=== PATIENT | female | born 1945 | race Caucasian/White ===

== ENCOUNTER 2017-06-21 17:02 | Outpatient (CLI) | payer MEDICARE, BC ==
[2017-06-21 18:16] LABS: Hematocrit 38.9 % (36.0-47.0); Mean Platelet Volume 10.1 fL (7.4-10.4); Red Blood Cell (RBC) Count 4.01 mill/uL (4.20-5.40); White Blood Cell (WBC) Count 15.8 thou/uL (4.8-10.8)
[2017-06-21 18:21] LABS: PTT 34.8 SEC (22.9-36.1); Prothrombin Time 13.2 SEC (12.0-14.7)
[2017-06-21 18:45] LABS: Anion Gap 12 mmol/L (10-20); BUN (Urea Nitrogen) 16 mg/dL (9.8-20.1); Calc. Creatinine Clearance 0 mL/min (70-130); Calcium 9.9 mg/dL (7.8-10.44); Carbon Dioxide 30 mmol/L (23-31); Chloride 103 mmol/L (98-107); Estimated GFR-MDRD 77
== END 2017-06-21 17:03 | disposition home or self-care (01) ==
LOC: LABBT 17:02
PROVIDERS: ATTEND Urology
DX: Z01.818 Encounter for other preprocedural examination (principal); N13.2 Hydronephrosis with renal and ureteral calculous obstruction
CPT/HCPCS: 80048; 85027; 85610; 85730

== ENCOUNTER 2017-06-27 06:53 | Day surgery (SDC) | payer MEDICARE, BC ==
[2017-06-21 17:15] VITALS: BMI 39.0
[2017-06-27] MEDS ORDERED: Iothalamate Meglumine 60% 50 ML VIAL FS ONE (07:19)
[2017-06-27] MEDS ORDERED: cefTRIAXone\\ROCEPHIN 2 GM in Sodium Chloride 0.9% 100 ML IVPB SCH (07:30)
[2017-06-27] MEDS ORDERED: Levofloxacin 500 mg/D5W 100 ml Premix Bag ONE (08:01)
[2017-06-27 08:05] LABS: #Basophils 0.1 thou/uL (0.0-0.2); #Eosinphils 0.7 thou/uL (0.0-0.7); #Monocytes 0.9 thou/uL (0.11-0.59); #Neutrophils 6.6 thou/uL (1.40-6.50); %Eosinophils 5.7 % (0.0-10.0); %Lymphocytes 32.6 % (21.0-51.0); %Monocytes 7.3 % (0.0-10.0); Hematocrit 38.5 % (36.0-47.0); Mean Platelet Volume 10.1 fL (7.4-10.4); Red Blood Cell (RBC) Count 4.02 mill/uL (4.20-5.40); White Blood Cell (WBC) Count 12.3 thou/uL (4.8-10.8)
--- NOTE | 2017-06-27 09:07 | RAD ---
SINGLE VIEW OF THE ABDOMEN: Comparison: None. History: Right renal stone. Pre-operative radiograph. FINDINGS: Single view of the abdomen shows a nonspecific, nonobstructive bowel gas pattern. There is a right do uble J ureteral stent in good position. There is a radiopacity projecting along the proximal aspect o f the stent which likely represents a proximal ureteral calcification measuring approximately 6 mm in size. IMPRESSION: Right ureteral stent with likely adjacent small ureteral calcification. POS: MAGDALENO
[2017-06-27] MEDS ORDERED: Midazolam HCl 2 mg/2 ml Vial ONE (09:11)
[2017-06-27] MEDS ORDERED: Fentanyl 250 MCG/5 ML VIAL ONE (09:11)
[2017-06-27] MEDS ORDERED: Phenazopyridine HCl 97.5 MG TABLET ONE ×2 (11:09→11:10)
--- NOTE | 2017-06-27 11:30 | RAD ---
RETROGRADE IVP: Date: 06/27/17 COMPARISON: 06/27/17. HISTORY: Right renal stone. FINDINGS/IMPRESSION: Multiple limited intraoperative fluoroscopic views from a retrograde IVP were submitted for interpret ation. There is a wire in the right renal collecting system. There is a radiopacity along the cranial aspect of the stent which may represent a calcification in the right ureter. There is mild right-marybeth ed hydronephrosis. POS: ALEXSANDRA
--- NOTE | 2017-06-27 12:18 | OP ---
DATE OF PROCEDURE: 06/27/2017 PREOPERATIVE DIAGNOSIS: A 71-year-old female with history of right proximal ureteral stone, 6-7mm. POSTOPERATIVE DIAGNOSIS: A 71-year-old female with history of right proximal ureteral stone, 6-7 mm. PROCEDURES: Cystoscopy, right retrograde, 6 x 26 double-J ureteral stent exchange with dangler, ureteroscopy, pyeloscopy, laser lithotripsy, basket extraction of stone fragments SURGEON: Neha Santamaria D.O. ANESTHESIA: General. COMPLICATIONS: None apparent. DISPOSITION: To the recovery room in stable condition. SPECIMEN: Ureteral stone fragments for chemical analysis. INDICATIONS FOR THE PROCEDURE AND HISTORY: Ms. Nieves is a 71-year-old female with history of morbid obesity who presented to [facility] due to intractable right flank pain. She underwent ureteral stent placement with resolution of discomfort. She initially presented with history of fever with white count of 18,000, final culture is negative and she has been on Levaquin. Repeat urine culture obtained in my office is negative and she desires to proceed with ureteroscopy and laser lithotripsy. I discussed with patient regarding alternative options including ESWL, however, due to stone to skin distance and her morbid obesity, decreased stone free rate with ESWL discussed with patient in detail and she desired to proceed with more definitive surgery. Risks and complications of ureteroscopy reviewed including, but not limited to , bleeding, pain, infection, injury to adjacent organs, urosepsis, ureteral / renal injury, possible secondary procedure was reviewed with her in detail. All questions answered to her satisfaction, she desires to proceed without reservation. DESCRIPTION OF THE PROCEDURE: After an informed consent is signed, the patient is taken to the operating room, placed in a dorsal lithotomy position with the genital area prepped and draped in the usual surgical sterile fashion. A 21- Lao cystoscope was utilized for cystoscopy. Preexisting ureteral stent was removed to the level of the meatus. Preop KUB demonstrated the stone in the proximal ureter adjacent to the stent. The stent was removed to the level of the meatus and a 0.35 sensor wire was fed through the stent to the level of the right upper pole. The stent was then completely removed. Using a dual-lumen access sheath, this was passed over the working wire and a retrograde pyelogram confirmed proper placement of the wire. A second working wire, a 0.35 super stiff was then placed. A dual-lumen access sheath was then subsequently removed and an 11/13 Lao x 36 cm navigator was placed to the level of the stone. A flexible ureteroscope was then passed under guidewire assist to level of the stone. The stone was directly visualized. The level of the ureter where the stone was obstructing demonstrated inflammatory changes consistent with an obstructing ureteral stone. Stone was moved to right upper pole and 200 micron laser fiber was utilized at 1.0 joules to fragment the stone into 3 dominant pieces. The stones were then basket extracted uneventfully with a 0 tip nitinol basket. These were sent for chemical analysis. The ureter was surveyed demonstrating no evidence of ureteral trauma. Repeat retrograde demonstrated no evidence of extravasation of contrast. The ureter then subsequently surveyed distally demonstrating no evidence of ureteral mucosa trauma or stone debris of concern. The navigator was then completely removed. A 6 x 26 double-J ureteral stent was passed over the safety wire. The wire was then subsequently removed demonstrating proper placement of the stent. The stent string was left to dangler as there is endoscopic clearance and this was then subsequently taped to the patient's pubic symphysis. She tolerated the procedure well and transported to the recovery room in stable condition. She will follow up in my office and will have the stent pull and dangler next week. She will subsequently see me in 4-6 month interval with follow up imaging and labs . She is discharged with Levaquin for a course of 7 days, Colace p.r.n., AZO p.r.n., VESIcare 5 mg 1 p.o. daily for 7 days, [place] 5/325 #50 pain, prescription provided. NERY
[2017-06-27] MEDS ORDERED: HYDROcodone/Acetaminophen 5/325 mg Tablet ONE (12:27)
[2017-06-27] MEDS ORDERED: Glycopyrrolate 0.2 MG/ML 5 ML SYRINGE ONE (17:25)
[2017-06-27] MEDS ORDERED: Propofol 200 MG/20 ML VIAL ONE (17:25)
[2017-06-27] MEDS ORDERED: Ondansetron HCl/PF 4 MG/2 ML Vial ONE (17:25)
[2017-06-27] MEDS ORDERED: Naloxone HCl 0.4 mg/ml Vial ONE (17:25)
[2017-06-27] MEDS ORDERED: Dexamethasone 20 MG/5 ML VIAL ONE (17:25)
[2017-06-27] MEDS ORDERED: ePHEDrine/0.9% NaCl/PF SYRINGE 50 mg/10 ml ONE (17:25)
[2017-06-27] MEDS ORDERED: Lidocaine 1% PF 5 ML VIAL ONE (17:25)
== END 2017-06-27 13:05 | disposition home or self-care (01) ==
LOC: SDC 06:53
PROVIDERS: ATTEND Urology
PROC: 0TF68ZZ Fragmentation in Right Ureter, Via Natural or Artificial Opening Endoscopic (ICD-10-PCS; principal; 2017-06-27)
PROC: 0T768DZ Dilation of Right Ureter with Intraluminal Device, Via Natural or Artificial Opening Endoscopic (ICD-10-PCS; 2017-06-27)
DX: N20.1 Calculus of ureter (principal); E03.9 Hypothyroidism, unspecified; H91.90 Unspecified hearing loss, unspecified ear; G47.33 Obstructive sleep apnea (adult) (pediatric); E66.01 Morbid (severe) obesity due to excess calories; Z68.39 Body mass index [BMI] 39.0-39.9, adult; Z79.899 Other long term (current) drug therapy; Z86.73 Personal history of transient ischemic attack (TIA), and cerebral infarction without residual deficits; Z82.49 Family history of ischemic heart disease and other diseases of the circulatory system
CPT/HCPCS: 52356; 74000; 74420; 82365; 85025; 88300; C1758; J0696; J1100; J1956; J2001; J2250; J2310; J2405; J2704; J3010; J7050; Q9961

== ENCOUNTER 2017-12-01 13:19 | Outpatient (CLI) | payer MEDICARE, BC | END 2017-12-01 13:20 | disposition home or self-care (01) | LOC: BICULT 13:19 | PROVIDERS: ATTEND Urology | DX: Z09 Encounter for follow-up examination after completed treatment for conditions other than malignant neoplasm (principal); Z87.442 Personal history of urinary calculi; I87.8 Other specified disorders of veins | CPT/HCPCS: 74018; 76770 ==

== ENCOUNTER 2018-12-21 10:21 | Outpatient (CLI) | payer MEDICARE, BC ==
--- NOTE | 2018-12-21 11:13 | ULT ---
RENAL ULTRASOUND: HISTORY: Renal calculi. COMPARISON: KUB from 12/01/2017. Renal ultrasound from 12/01/2017. TECHNIQUE: Real-time imaging of the right and left kidneys was performed. FINDINGS: The right kidney measures 12.5 cm in length and the left measures 12.1 cm. There are no signs of cys t, mass, or obstruction. The bladder region appears unremarkable. IMPRESSION: Unremarkable renal ultrasound. POS: CET
--- NOTE | 2018-12-21 11:25 | RAD ---
KUB: HISTORY: Renal calculus. COMPARISON: 12/01/2017 FINDINGS: The bowel gas pattern is nonobstructive. I do not appreciate any definitive renal calculi. There ar e arthritic changes of the spine. Phleboliths are seen within the pelvis. IMPRESSION: No definitive renal calculi. POS: CET
== END 2018-12-21 10:22 | disposition home or self-care (01) ==
LOC: BICULT 10:21
PROVIDERS: ATTEND Urology
DX: N20.0 Calculus of kidney (principal)
CPT/HCPCS: 36415; 74018; 76770; 80048; 81003; 81015; 87086